=== PATIENT | male | born 1960 | race Caucasian/White ===

== ENCOUNTER 2017-10-31 21:45 | Inpatient (IN) ==
[2017-10-31 22:21] LABS: Baso # (Auto) 0.1 th/mm3 (0.0-0.2); Baso % (Auto) 0.5 % (0.0-2.0); Eos # (Auto) 0.4 th/mm3 (0.0-0.4); Eos % (Auto) 2.7 % (0.0-4.0); Hematocrit 37.9 % (39.0-51.0); Hemoglobin 12.6 gm/dL (13.0-17.0); Lymph % (Auto) 33.7 % (9.0-44.0); Mean Corpuscular HGB Conc 33.3 % (32.0-36.0); Mean Corpuscular Hemoglobin 33.4 pg (27.0-34.0); Mean Platelet Volume 7.4 fL (7.0-11.0); Mono # (Auto) 1.4 th/mm3 (0.0-0.9); Mono % (Auto) 9.2 % (0.0-8.0); Neut % (Auto) 53.9 % (16.0-70.0); Platelet Count 342 th/mm3 (150-450); Red Blood Count 3.79 mil/mm3 (4.50-5.90); White Blood Count 14.8 th/mm3 (4.0-11.0)
[2017-10-31 22:33] LABS: Activated Partial Thrombo Time 28.3 sec (24.3-30.1); INR 1.1 Ratio; Prothrombin Time 11.4 sec (9.8-11.6)
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
[2017-10-31 22:46] LABS: Calcium 7.2 mg/dL (8.5-10.1); Carbon Dioxide 20.6 meq/L (21.0-32.0)
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
[2017-10-31 23:01] LABS: Total Protein 6.6 g/dL (6.4-8.2)
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
[2017-10-31] MEDS ORDERED: Norepinephrine Inj 4 MG in Sodium Chlor 0.9% Inj 246 ML IV.SIG PRN (23:33)
[2017-10-31] MEDS ORDERED: Midazolam 50 MG/50 ML Inj 50 MG/50 ML BAG IV.CONT PRN (23:43)
[2017-10-31] MEDS: Sod Chloride 0.9% Inj 1,000 ML IV.SIG SCH (23:49)
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
[2017-11-01 00:22] LABS: ABG Base Excess -11.1 mmol/L (-2-2); ABG PCO2 33 mmHg (38-42); ABG PO2 477 mmHg (61-120)
[2017-11-01] MEDS ORDERED: Sod Chloride 0.9% Inj 1,000 ML IV.SIG SCH (00:49)
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
--- NOTE | 2017-11-01 01:05 | XR ---
EXAM DATE: 11/01/2017 12:06 AM EDT AGE/SEX: 89 years / Male INDICATIONS: Central line placement. CLINICAL DATA: This is the patient's subsequent encounter. Patient reports that signs and symptoms h ave been present for 3 days and indicates a pain score of Nonresponsive. MEDICAL/SURGICAL HISTORY: None. None. COMPARISON: [facility] [place], CHEST 1V SINGLE AP, 10/31/2017. . FINDINGS: Single AP view of the chest. Endotracheal tube remains in place. Nasogastric tube is now in place wit h the tip in the stomach. Left subclavian central venous catheter is in place with the tip at the cav oatrial junction. No evidence of pneumothorax. Lungs are clear. No pleural effusion. Cardiomediastina l silhouette within normal limits. CONCLUSION: Left subclavian central venous catheter and nasogastric tube now in place. Lungs are clear. Electronically signed by: Narciso Li MD 11/01/2017 1:04 AM EDT
[2017-11-01] MEDS: fentaNYL 10 mcg/mL Premix Drip 2,500 MCG/250 ML BAG IV.SIG PRN ×2 (02:23→19:43)
[2017-11-01 02:56] LABS: Bacteria,Urine Rare /hpf; Bilirubin,Urine Negative (Negative); Clarity,Urine Cloudy (Clear); Color,Urine Yellow (Yellw/Straw); Glucose,Urine (UA) 50 mg/dL (Negative); Leukocyte Esterase,Urine Negative (Negative); Nitrite,Urine Negative (Negative); Specific Gravity,Urine 1.034 (1.002-1.035); Squamous Epithelial Cell,Urine 1 /hpf (0-5)
[2017-11-01 03:00] LABS: Amphetamine Screen,Urine Neg (Neg); Barbiturate Screen,Urine Neg (Neg); Cannabinoid Screen,Urine Neg (Neg); Cocaine Screen,Urine Neg (Neg)
[2017-11-01 03:01] LABS: Opiate Screen,Urine Neg (Neg)
[2017-11-01] MEDS: Norepinephrine Inj 4 MG in Sodium Chlor 0.9% Inj 246 ML IV.SIG PRN ×3 (04:41→17:26)
[2017-11-01 05:23] LABS: ABG Base Excess -8.4 mmol/L (-2-2); ABG PCO2 31 mmHg (38-42); ABG PO2 199 mmHg (61-120)
[2017-11-01 05:34] LABS: Baso % (Auto) 0.2 % (0.0-2.0); Eos # (Auto) 0.1 th/mm3 (0.0-0.4); Eos % (Auto) 0.5 % (0.0-4.0); Hematocrit 34.3 % (39.0-51.0); Hemoglobin 12.4 gm/dL (13.0-17.0); Lymph # (Auto) 0.8 th/mm3 (1.0-4.8); Lymph % (Auto) 6.6 % (9.0-44.0); Mean Corpuscular Hemoglobin 33.8 pg (27.0-34.0); Mean Corpuscular Volume 93.9 fL (80.0-100.0); Mean Platelet Volume 7.2 fL (7.0-11.0); Mono # (Auto) 2.1 th/mm3 (0.0-0.9); Mono % (Auto) 16.5 % (0.0-8.0); Neut # (Auto) 9.7 th/mm3 (1.8-7.7); Neut % (Auto) 76.2 % (16.0-70.0); Platelet Count 227 th/mm3 (150-450); Red Blood Count 3.66 mil/mm3 (4.50-5.90); Red Cell Distribution Width 15.9 % (11.6-17.2); White Blood Count 12.7 th/mm3 (4.0-11.0)
[2017-11-01 06:00] LABS: Calcium 6.7 mg/dL (8.5-10.1); Carbon Dioxide 16.5 meq/L (21.0-32.0); Potassium 3.5 meq/L (3.5-5.1)
[2017-11-01] MEDS ORDERED: Magnesium Sulfate Inj 4 GM in Sodium Chlor 0.9% Inj 92 ML IV.SIG PRN ×2 (06:07→08:36)
[2017-11-01] MEDS ORDERED: Potassium Chlor 40 mEq Premix 40 MEQ/100 ML PIGGYBACK IV.SIG PRN ×4 (06:07→08:36)
[2017-11-01] MEDS ORDERED: Magnesium Sulfate Inj 2 GM in Sodium Chlor 0.9% Inj 96 ML IV.SIG PRN ×2 (06:07→08:36)
[2017-11-01] MEDS ORDERED: Magnesium Oxide 400 MG Tablet PO PRN ×2 (06:07→08:36)
[2017-11-01] MEDS ORDERED: Potassium Phosphate Inj 30 MMOL in Sodium Chlor 0.9% Inj 250 ML IV.SIG PRN ×2 (06:07→08:36)
[2017-11-01] MEDS ORDERED: Potassium Chlor 20 mEq Premix 20 MEQ/100 ML PIGGYBACK IV.SIG PRN ×4 (06:07→08:36)
[2017-11-01] MEDS ORDERED: Sodium Phosphate Inj 30 MMOL in Sodium Chlor 0.9% Inj 250 ML IV.SIG PRN ×2 (06:07→08:36)
[2017-11-01] MEDS ORDERED: Potassium Phosphate 500 MG Soluble Tablet PO PRN ×4 (06:07→08:36)
[2017-11-01 06:18] LABS: Total Protein 5.8 g/dL (6.4-8.2)
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
[2017-11-01] MEDS ORDERED: levETIRAcetam 500mg/100mL Inj 100 ML IV.SIG SCH (08:00)
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
[2017-11-01] MEDS: Famotidine Premix Inj 20 MG/50 ML PIGGYBACK IV.SIG SCH ×2 (08:17→09:39)
[2017-11-01 08:24] LABS: Lymphocytes 4 % (9-44); Monocytes 10 % (0-8); Myelocytes 3 % (0-0); Platelet Estimate Normal (Normal); Platelet Morphology Normal (Normal)
[2017-11-01] MEDS ORDERED: Potassium Chloride 25 MEQ Effervescent Tablet PO PRN (08:36)
[2017-11-01] MEDS ORDERED: Pantoprazole Inj 40 MG Vial IV.PUSH SCH (09:00)
[2017-11-01] MEDS: Chlorhexidine 0.12% Oral Kit 15 ML UDC OROPHARYNG SCH ×2 (09:36→22:27)
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
--- NOTE | 2017-11-01 11:06 | ECG ---
Date Performed: 11/01/2017 Time Performed: 10:44:18 PTAGE: 89 years EKG: Sinus tachycardia. Normal ECG except for rate NO PREVIOUS TRACING DOCTOR: Addi Horn Interpretating Date/Time 11/01/2017 11:05:26
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
--- NOTE | 2017-11-01 12:46 | CT ---
EXAM DATE: 11/01/2017 12:38 PM EDT AGE/SEX: 89 years / Male INDICATIONS: Follow up head injury. CLINICAL DATA: This is the patient's subsequent encounter. Patient reports that signs and symptoms h ave been present for 2 days and indicates a pain score of Nonresponsive. MEDICAL/SURGICAL HISTORY: . Skull fractures. None. RADIATION DOSE: 48.11 CTDI (mGy) COMPARISON: [facility] [place] HEAD W/O CONTRAST, 10/31/2017. . TECHNIQUE: CT of the head without contrast. Using automated exposure control and adjustment of the mA and/or kV according to patient size, radiation dose was kept as low as reasonably achievable to ob tain optimal diagnostic quality images. DICOM format image data is available electronically for revi ew and comparison. FINDINGS: Cerebrum: Evolving and increasing contusions within the right frontal and right temporal region. The re is adjacent vasogenic edema and mass effect. No significant midline shift. Ventricles remain paten t. Minimal subarachnoid hemorrhage left parietal region. There are subarachnoid hemorrhage on the rig ht as well. Small bilateral subdural hemorrhages measuring 11 mm on the left and 5 mm on the right Mi nimal pneumocephaly. The ventricles are normal for age. No evidence of midline shift, mass lesion, o r acute infarction. Posterior Fossa: The cerebellum and brainstem are intact. The 4th ventricle is midline. The cerebe llopontine angle is unremarkable. Extracranial: The visualized portion of the orbits is intact. Fluid throughout the paranasal sinuses . Skull: Left temporal parietal calvarial fracture.. Right temporal calvarial fracture CONCLUSION: 1. Evolving and increasing contusions left frontal temporal lobe. 2. Mild edema with mass effect but no midline shift. 3. Small bilateral subdural hemorrhages. Electronically signed by: Felton Prince MD 11/01/2017 12:44 PM EDT
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
[2017-11-01] MEDS ORDERED: Lidocaine 1%/Epinephrine 1:100,000 Inj 30 ML Vial ONE ×2 (18:32→18:33)
--- NOTE | 2017-11-01 19:17 | P.PNNS ---
Subjective Interval history: Nurses report no clinical change Physical Exam Vital signs: Vital Signs 10/31/17 21:31 10/31/17 22:15 10/31/17 22:40 Temperature Pulse Rate Respiratory Rate 27 H Blood Pressure Pulse Oximetry 100 100 100 10/31/17 23:00 10/31/17 23:39 11/01/17 00:00 Temperature 99.3 F 100 F H Pulse Rate 92 H 94 H Respiratory Rate 22 20 28 H Blood Pressure 98/58 L 121/60 Pulse Oximetry 100 100 11/01/17 00:53 11/01/17 04:00 11/01/17 04:46 Temperature 100.0 F H 100 F H Pulse Rate 111 H 113 H Respiratory Rate 26 H 22 22 Blood Pressure 124/66 130/83 Pulse Oximetry 100 100 11/01/17 07:53 11/01/17 08:00 11/01/17 09:00 Temperature 102.3 F H Pulse Rate 108 H 107 H 106 H Respiratory Rate 20 Blood Pressure 114/73 Pulse Oximetry 100 100 11/01/17 11:18 11/01/17 12:00 11/01/17 12:54 Temperature 100.8 F H Pulse Rate 112 H 101 H Respiratory Rate 18 16 Blood Pressure 96/55 L Pulse Oximetry 100 99 100 11/01/17 16:00 11/01/17 16:06 Temperature 98.1 F Pulse Rate 91 H 89 Respiratory Rate 16 15 Blood Pressure 100/55 L Pulse Oximetry 98 99 Intake & Output 11/01/17 11/01/17 11/02/17 06:59 18:59 06:59 Intake Total 2737 / 2737 905 / 905 Output Total 1000 / 1000 Balance 1737 / 1737 905 / 905 Weight 92.6 kg Intake: IV 1350 / 1350 905 / 905 Ofirmev Inj 1,000 mg In 100 ml 100 / 100 @ 400 mls/hr IV.SIG Q6H PRN Rx# :[id number] Pepcid 20 MG/50 ML Premix Inj 100 / 100 20 mg In 50 ml @ 100 mls/hr IV. SIG Q12HR JEMIMA Rx#:[id number] Levophed Inj 4 MG In NS Inj 246 250 / 250 500 / 500 ML @ 2 MCG/MIN 7.5 mls/hr IV. SIG TITRATE PRN Rx#:[id number] NS Inj 1,000 ML @ 999 mls/hr IV 1000 / 1000 .SIG .Q1H1M JEMIMA Rx#:[id number] Ancef Inj 1,000 MG In NS Inj 100 / 100 100 / 100 100 ML @ 200 mls/hr IV.SIG Q8H JEMIMA Rx#:[id number] Keppra Inj 500 MG In NS Inj 100 105 / 105 ML @ 400 mls/hr IV.SIG Q12HR JEMIMA Rx#:[id number] Other 500 / 500 Plasma Thawed 5 Day Cp2d Unit 500 / 500 [id number] Intake (Blood Product) Amt 887 / 887 Plasma Thawed 5 Day Acda Unit 223 / 223 [id number] Plasma Thawed 5 Day Cp2d Unit 264 / 264 [id number] Rbc As-3 Leukoreduced Unit 400 / 400 [id number] Output: Urine Amount (Catheter) 900 / 900 Indwelling Urethral Catheter 900 / 900 Gastric Drainage 100 / 100 Orogastric Tube 100 / 100 Narrative: Patient remains intubated and sedated Pupils are equal poorly reactive Minimal response in the lower extremities Tends to move the right upper extremity CT scan of the brain reviewed. Increase in hemorrhagic contusions and small subdural hematomas ICP monitor placed under local anesthesia. ICP 5-8 - Urinary Catheter Management Indwelling Urethral Catheter Cath placed during this visit: yes Reason for continuing: Hourly intake/output Insertion date: 11/01/17 Insertion time: 12:00 Assessment and Plan - Plan No change clinically. Despite worsening of CT, ICP remains under control We will continue close monitoring
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
[2017-11-01] MEDS: Senna/Docusate Sodium 8.6/50 MG Tablet PO SCH (22:27)
[2017-11-01] MEDS: Sod Chloride 0.9% Inj 1,000 ML IV.SIG SCH (22:37)
[2017-11-02] MEDS: Oral Hygiene Kit OROPHARYNG SCH ×3 (00:05→11:24)
[2017-11-02] MEDS: Norepinephrine Inj 4 MG in Sodium Chlor 0.9% Inj 246 ML IV.SIG PRN ×4 (00:30→21:01)
[2017-11-02 03:59] LABS: Baso % (Auto) 0.2 % (0.0-2.0); Eos % (Auto) 0.1 % (0.0-4.0); Hematocrit 33.6 % (39.0-51.0); Hemoglobin 11.4 gm/dL (13.0-17.0); Lymph # (Auto) 0.8 th/mm3 (1.0-4.8); Lymph % (Auto) 4.3 % (9.0-44.0); Mean Corpuscular HGB Conc 33.9 % (32.0-36.0); Mean Corpuscular Hemoglobin 32.6 pg (27.0-34.0); Mean Corpuscular Volume 96.1 fL (80.0-100.0); Mean Platelet Volume 7.7 fL (7.0-11.0); Mono # (Auto) 2.1 th/mm3 (0.0-0.9); Mono % (Auto) 11.5 % (0.0-8.0); Neut % (Auto) 83.9 % (16.0-70.0); Platelet Count 215 th/mm3 (150-450); Red Cell Distribution Width 16.4 % (11.6-17.2); White Blood Count 17.9 th/mm3 (4.0-11.0)
[2017-11-02 04:24] LABS: Potassium 4.3 meq/L (3.5-5.1)
[2017-11-02 04:40] LABS: Total Protein 5.9 g/dL (6.4-8.2)
--- NOTE | 2017-11-02 04:49 | XR ---
EXAM DATE: 11/02/2017 4:17 AM EDT AGE/SEX: 89 years / Male INDICATIONS: Difficulty breathing. CLINICAL DATA: This is the patient's subsequent encounter. Patient reports that signs and symptoms h ave been present for 2 days and indicates a pain score of Nonresponsive. MEDICAL/SURGICAL HISTORY: Non-responsive. Non-responsive. COMPARISON: [facility], CHEST 1V SINGLE AP, 10/31/2017. . FINDINGS: Stable ETT and NGT. Stable left subclavian central line. No significant new focal pleural or parenchy mal opacities. Cardiomediastinal contours are within normal limits. Bony thorax is intact. CONCLUSION: 1. Stable tubes and lines. 2. No significant interval change or acute abnormality. Electronically signed by: Bakari Muniz MD 11/02/2017 4:48 AM EDT
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
[2017-11-02] MEDS: Chlorhexidine 0.12% Oral Kit 15 ML UDC OROPHARYNG SCH ×2 (08:29→19:23)
[2017-11-02] MEDS: Senna/Docusate Sodium 8.6/50 MG Tablet PO SCH ×2 (08:29→20:04)
[2017-11-02] MEDS: fentaNYL 10 mcg/mL Premix Drip 2,500 MCG/250 ML BAG IV.SIG PRN ×2 (10:44→20:25)
[2017-11-02] MEDS: Piperacil/Tazo 4.5 GM Premix 4.5 GM/100 ML BAG IV.SIG SCH ×2 (10:44→18:42)
[2017-11-02] MEDS ORDERED: Vancomycin Inj 1,000 MG in Sodium Chlor 0.9% Inj 250 ML IV.SIG SCH (11:00)
[2017-11-02] MEDS ORDERED: Vancomycin Consult Pharmacy 1 EACH OTHER SCH (11:00)
[2017-11-02] MEDS: Propofol 1000 mg/100 ml Inj 1,000 MG/100 ML BOTTLE IV.CONT PRN ×3 (11:24→21:06)
[2017-11-02] MEDS ORDERED: RASS Change Order MISCELLANE ONE (12:00)
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
[2017-11-02] MEDS ORDERED: Vancomycin Inj 2,000 MG in Sodium Chlor 0.9% Inj 500 ML IV.SIG ONE (13:00)
[2017-11-02 13:27] LABS: ABG PCO2 43 mmHg (38-42); ABG PO2 143 mmHg (61-120)
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
[2017-11-02] MEDS ORDERED: Midazolam 50 MG/50 ML Inj 50 MG/50 ML BAG IV.CONT PRN (14:27)
[2017-11-02] MEDS ORDERED: Sodium Chloride 23.4% Inj 240 MEQ in Syringe/Bag 1 EACH IV.SIG ONE (15:00)
[2017-11-02] MEDS: Sod Chloride 0.9% Inj 1,000 ML IV.SIG SCH (20:03)
[2017-11-02] MEDS: Famotidine 20 MG Tablet PO SCH (20:04)
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
[2017-11-03] MEDS: Piperacil/Tazo 4.5 GM Premix 4.5 GM/100 ML BAG IV.SIG SCH ×3 (00:12→16:53)
[2017-11-03] MEDS: Propofol 1000 mg/100 ml Inj 1,000 MG/100 ML BOTTLE IV.CONT PRN ×3 (00:54→22:29)
[2017-11-03] MEDS: Oral Hygiene Kit OROPHARYNG SCH ×4 (00:59→23:53)
[2017-11-03] MEDS: Vancomycin Inj 1,500 MG in Sodium Chlor 0.9% Inj 500 ML IV.SIG SCH ×2 (03:25→16:53)
[2017-11-03 04:24] LABS: Baso # (Auto) 0.1 th/mm3 (0.0-0.2); Baso % (Auto) 0.4 % (0.0-2.0); Eos # (Auto) 0.3 th/mm3 (0.0-0.4); Eos % (Auto) 2.3 % (0.0-4.0); Hematocrit 27.3 % (39.0-51.0); Hemoglobin 9.3 gm/dL (13.0-17.0); Lymph # (Auto) 1.1 th/mm3 (1.0-4.8); Lymph % (Auto) 7.3 % (9.0-44.0); Mean Corpuscular HGB Conc 34.1 % (32.0-36.0); Mean Corpuscular Hemoglobin 33.1 pg (27.0-34.0); Mean Platelet Volume 8.4 fL (7.0-11.0); Mono # (Auto) 1.1 th/mm3 (0.0-0.9); Mono % (Auto) 7.8 % (0.0-8.0); Neut % (Auto) 82.2 % (16.0-70.0); Platelet Count 197 th/mm3 (150-450); Red Blood Count 2.81 mil/mm3 (4.50-5.90); White Blood Count 14.6 th/mm3 (4.0-11.0)
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
[2017-11-03 04:53] LABS: Anion Gap 9 meq/L (5-15); Blood Urea Nitrogen 11 mg/dL (7-18); Calcium 7.6 mg/dL (8.5-10.1); Carbon Dioxide 25.3 meq/L (21.0-32.0); Chloride 116 meq/L (98-107); Glomerular Filtration Rate Greater Than 89 mL/min (>89); Glucose,Random 176 mg/dL (74-106); Potassium 3.7 meq/L (3.5-5.1); Sodium 150 meq/L (136-145)
[2017-11-03] MEDS: Norepinephrine Inj 4 MG in Sodium Chlor 0.9% Inj 246 ML IV.SIG PRN (07:23)
[2017-11-03] MEDS: Senna/Docusate Sodium 8.6/50 MG Tablet PO SCH ×2 (08:00→20:11)
[2017-11-03] MEDS: Famotidine 20 MG Tablet PO SCH ×2 (08:00→20:11)
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
[2017-11-03] MEDS: fentaNYL 10 mcg/mL Premix Drip 2,500 MCG/250 ML BAG IV.SIG PRN (11:19)
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
[2017-11-03] MEDS: Chlorhexidine 0.12% Oral Kit 15 ML UDC OROPHARYNG SCH ×2 (20:12→21:28)
[2017-11-03] MEDS: Mupirocin 2% Nasal Oint Topical Syringe EACH NARE SCH (20:16)
[2017-11-04] MEDS: Vancomycin Inj 1,500 MG in Sodium Chlor 0.9% Inj 500 ML IV.SIG SCH ×2 (02:28→15:11)
--- NOTE | 2017-11-04 04:11 | XR ---
EXAM DATE: 11/04/2017 4:02 AM EDT AGE/SEX: 57 years / Male INDICATIONS: Shortness of breath. CLINICAL DATA: This is the patient's subsequent encounter. Patient reports that signs and symptoms h ave been present for 4 - 6 days and indicates a pain score of Nonresponsive. MEDICAL/SURGICAL HISTORY: Non-responsive. Non-responsive. COMPARISON: [facility] [place], CT CHEST W CONTRAST, 10/31/2017. . FINDINGS: Stable ETT, NGT and left subclavian central line. Persistent pleural-parenchymal disease in the left lower lung zone. Developing pleural-parenchymal disease in the right lower lung zone. Cardiomegaly sa w contours are stable. Redemonstration of right-sided rib fractures. CONCLUSION: 1. Stable tubes and lines. 2. Stable small left pleural effusion and associated airspace disease in the left lower lung zone. 3. Developing small right pleural effusion and associated lower lung zone airspace disease. Electronically signed by: Bakari Muniz MD 11/04/2017 4:09 AM EDT
[2017-11-04] MEDS: Propofol 1000 mg/100 ml Inj 1,000 MG/100 ML BOTTLE IV.CONT PRN ×3 (04:44→18:45)
[2017-11-04 05:06] LABS: Baso % (Auto) 0.3 % (0.0-2.0); Eos # (Auto) 0.4 th/mm3 (0.0-0.4); Eos % (Auto) 3.6 % (0.0-4.0); Hematocrit 25.3 % (39.0-51.0); Hemoglobin 8.7 gm/dL (13.0-17.0); Lymph # (Auto) 1.1 th/mm3 (1.0-4.8); Lymph % (Auto) 9.6 % (9.0-44.0); Mean Corpuscular HGB Conc 34.6 % (32.0-36.0); Mean Corpuscular Hemoglobin 33.4 pg (27.0-34.0); Mean Corpuscular Volume 96.7 fL (80.0-100.0); Mono # (Auto) 0.8 th/mm3 (0.0-0.9); Mono % (Auto) 7.1 % (0.0-8.0); Neut # (Auto) 9.2 th/mm3 (1.8-7.7); Neut % (Auto) 79.4 % (16.0-70.0); Platelet Count 207 th/mm3 (150-450); Red Blood Count 2.62 mil/mm3 (4.50-5.90); Red Cell Distribution Width 16.1 % (11.6-17.2); White Blood Count 11.6 th/mm3 (4.0-11.0)
[2017-11-04 05:30] LABS: Anion Gap 7 meq/L (5-15); Blood Urea Nitrogen 10 mg/dL (7-18); Calcium 7.6 mg/dL (8.5-10.1); Carbon Dioxide 26.7 meq/L (21.0-32.0); Chloride 118 meq/L (98-107); Glomerular Filtration Rate Greater Than 89 mL/min (>89); Glucose,Random 138 mg/dL (74-106); Potassium 3.4 meq/L (3.5-5.1); Sodium 152 meq/L (136-145)
[2017-11-04] MEDS: Potassium Chloride 25 MEQ Effervescent Tablet PO PRN (06:42)
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
[2017-11-04] MEDS: Mupirocin 2% Nasal Oint Topical Syringe EACH NARE SCH ×2 (09:14→20:18)
[2017-11-04] MEDS: Senna/Docusate Sodium 8.6/50 MG Tablet PO SCH ×2 (09:15→20:18)
[2017-11-04] MEDS: Famotidine 20 MG Tablet PO SCH ×2 (09:15→20:18)
[2017-11-04] MEDS: fentaNYL 10 mcg/mL Premix Drip 2,500 MCG/250 ML BAG IV.SIG PRN (09:58)
[2017-11-04] MEDS: Oral Hygiene Kit OROPHARYNG SCH ×3 (09:58→18:38)
[2017-11-04] MEDS ORDERED: Bisacodyl 10 MG Supp RECTAL ONE (10:27)
[2017-11-04] MEDS ORDERED: Sodium Chlor 0.9% Inj 250 ML IV.SIG SCH (11:00)
[2017-11-04] MEDS: Piperacil/Tazo 4.5 GM Premix 4.5 GM/100 ML BAG IV.SIG SCH ×3 (11:25→22:10)
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
--- NOTE | 2017-11-04 14:44 | P.PNPAL ---
[employer] results obtained: * Ruth Medrano, mother: voicemail left with palliative care stating she DOES NOT want to participate in medical decision making * Deisi Medrano, sister: [phone]-- wishes to participate in medical proxy decision making; attempting to have her mother () all patient's 7 siblings (patient had 8 siblings, 1 ) contact palliative care to voice their desire to participate or opt out of decision making. * Charly Medraon, brother: [phone]-- does NOT wish to participate in medical decision making. * Ran Medrano, brother: [phone] -- does NOT wish to participate in medical decision making * Jagruti Medrano, brother: blocked number -- does NOT wish to participate in medical proxy decision making * Suze Garduno, sister: [phone] -- does NOT wish to participate in medical decision making * Edith Medrano, sister: [phone]-- does NOT wish to participate in medical decision making * Charly Medrano, nephew: #[phone] * Ruth Medrano, niece: #[phone] Deisi Medrano, sister #[phone], will serve as health care proxy at this time. Requested contacts to be updated in EMR. Palliative care will continue to follow throughout hospitalization.
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
[2017-11-04] MEDS: Chlorhexidine 0.12% Oral Kit 15 ML UDC OROPHARYNG SCH (20:19)
[2017-11-05] MEDS: Oral Hygiene Kit OROPHARYNG SCH ×5 (01:12→16:23)
[2017-11-05] MEDS: fentaNYL 10 mcg/mL Premix Drip 2,500 MCG/250 ML BAG IV.SIG PRN ×2 (01:13→09:25)
[2017-11-05] MEDS: Propofol 1000 mg/100 ml Inj 1,000 MG/100 ML BOTTLE IV.CONT PRN ×3 (02:10→17:37)
[2017-11-05] MEDS ORDERED: Pharmacy Ordered Lab Info OTHER ONE (02:45)
[2017-11-05 03:11] LABS: Baso # (Auto) 0.1 th/mm3 (0.0-0.2); Baso % (Auto) 0.6 % (0.0-2.0); Eos # (Auto) 0.5 th/mm3 (0.0-0.4); Eos % (Auto) 4.6 % (0.0-4.0); Lymph # (Auto) 1.1 th/mm3 (1.0-4.8); Lymph % (Auto) 9.7 % (9.0-44.0); Mean Corpuscular HGB Conc 34.5 % (32.0-36.0); Mean Corpuscular Hemoglobin 32.5 pg (27.0-34.0); Mean Corpuscular Volume 94.1 fL (80.0-100.0); Mean Platelet Volume 7.9 fL (7.0-11.0); Mono # (Auto) 1.1 th/mm3 (0.0-0.9); Mono % (Auto) 10.4 % (0.0-8.0); Neut # (Auto) 8.2 th/mm3 (1.8-7.7); Neut % (Auto) 74.7 % (16.0-70.0); Platelet Count 251 th/mm3 (150-450); Red Cell Distribution Width 15.8 % (11.6-17.2)
[2017-11-05 03:27] LABS: Anion Gap 8 meq/L (5-15); Blood Urea Nitrogen 10 mg/dL (7-18); Calcium 7.5 mg/dL (8.5-10.1); Carbon Dioxide 25.2 meq/L (21.0-32.0); Chloride 118 meq/L (98-107); Glomerular Filtration Rate Greater Than 89 mL/min (>89); Glucose,Random 132 mg/dL (74-106); Potassium 3.4 meq/L (3.5-5.1); Sodium 151 meq/L (136-145)
[2017-11-05] MEDS: Piperacil/Tazo 4.5 GM Premix 4.5 GM/100 ML BAG IV.SIG SCH ×4 (04:08→23:00)
[2017-11-05 05:30] LABS: ABG Base Excess 1.8 mmol/L (-2-2); ABG PCO2 39 mmHg (38-42); ABG PO2 110 mmHg (61-120)
[2017-11-05] MEDS: Potassium Chloride 25 MEQ Effervescent Tablet PO PRN (05:41)
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
[2017-11-05] MEDS: Sod Chloride 0.9% Inj 1,000 ML IV.SIG SCH ×4 (08:16→18:09)
[2017-11-05] MEDS: Chlorhexidine 0.12% Oral Kit 15 ML UDC OROPHARYNG SCH ×4 (08:17→20:18)
[2017-11-05] MEDS: Mupirocin 2% Nasal Oint Topical Syringe EACH NARE SCH ×2 (08:17→20:18)
[2017-11-05] MEDS: Famotidine 20 MG Tablet PO SCH ×2 (09:02→20:19)
[2017-11-05] MEDS: Senna/Docusate Sodium 8.6/50 MG Tablet PO SCH ×2 (09:02→20:19)
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
[2017-11-06] MEDS: Oral Hygiene Kit OROPHARYNG SCH ×4 (00:12→15:49)
[2017-11-06] MEDS: Propofol 1000 mg/100 ml Inj 1,000 MG/100 ML BOTTLE IV.CONT PRN ×2 (00:13→08:17)
[2017-11-06] MEDS: Piperacil/Tazo 4.5 GM Premix 4.5 GM/100 ML BAG IV.SIG SCH ×2 (04:42→10:50)
[2017-11-06] MEDS: fentaNYL 10 mcg/mL Premix Drip 2,500 MCG/250 ML BAG IV.SIG PRN ×3 (04:43→23:17)
[2017-11-06 05:40] LABS: Baso # (Auto) 0.1 th/mm3 (0.0-0.2); Baso % (Auto) 0.5 % (0.0-2.0); Eos # (Auto) 0.9 th/mm3 (0.0-0.4); Eos % (Auto) 7.4 % (0.0-4.0); Hematocrit 32.2 % (39.0-51.0); Hemoglobin 10.8 gm/dL (13.0-17.0); Lymph # (Auto) 0.9 th/mm3 (1.0-4.8); Lymph % (Auto) 7.6 % (9.0-44.0); Mean Corpuscular HGB Conc 33.7 % (32.0-36.0); Mean Corpuscular Hemoglobin 32.1 pg (27.0-34.0); Mean Corpuscular Volume 95.4 fL (80.0-100.0); Mono # (Auto) 1.5 th/mm3 (0.0-0.9); Mono % (Auto) 12.6 % (0.0-8.0); Neut # (Auto) 8.6 th/mm3 (1.8-7.7); Neut % (Auto) 71.9 % (16.0-70.0); Platelet Count 272 th/mm3 (150-450); Red Blood Count 3.38 mil/mm3 (4.50-5.90); Red Cell Distribution Width 16.2 % (11.6-17.2)
[2017-11-06 05:54] LABS: Anion Gap 8 meq/L (5-15); Blood Urea Nitrogen 11 mg/dL (7-18); Calcium 7.8 mg/dL (8.5-10.1); Carbon Dioxide 25.9 meq/L (21.0-32.0); Chloride 117 meq/L (98-107); Glomerular Filtration Rate Greater Than 89 mL/min (>89); Glucose,Random 119 mg/dL (74-106); Potassium 3.5 meq/L (3.5-5.1); Sodium 151 meq/L (136-145)
[2017-11-06 06:03] LABS: ABG Base Excess 0.7 mmol/L (-2-2); ABG PCO2 39 mmHg (38-42); ABG PO2 121 mmHg (61-120)
[2017-11-06] MEDS: Potassium Chloride 25 MEQ Effervescent Tablet PO PRN (06:26)
[2017-11-06] MEDS: Chlorhexidine 0.12% Oral Kit 15 ML UDC OROPHARYNG SCH (07:33)
[2017-11-06] MEDS: Mupirocin 2% Nasal Oint Topical Syringe EACH NARE SCH (08:02)
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
[2017-11-06] MEDS: Famotidine 20 MG Tablet PO SCH (08:07)
[2017-11-06] MEDS: Senna/Docusate Sodium 8.6/50 MG Tablet PO SCH (08:08)
[2017-11-06 08:28] LABS: Eosinophils 10 % (0-4); Lymphocytes 7 % (9-44); Monocytes 9 % (0-8); Platelet Estimate Normal (Normal); Platelet Morphology Normal (Normal); RBC Morphology Normal (Normal)
[2017-11-06] MEDS: Sod Chloride 0.9% Inj 1,000 ML IV.SIG SCH (09:15)
[2017-11-06] MEDS ORDERED: Morphine Inj 4 MG/ML Vial IV.PUSH ONE ×2 (11:01→14:07)
[2017-11-06] MEDS ORDERED: Acetaminophen 650 MG Supp RECTAL PRN ×2 (11:01→14:07)
[2017-11-06] MEDS ORDERED: Morphine Sulfate Inj 8 MG/ML Vial IV.PUSH ONE ×2 (11:01→14:07)
[2017-11-06] MEDS ORDERED: Morphine Inj 4 MG/ML Vial IV.PUSH PRN ×2 (11:01→14:07)
[2017-11-06] MEDS ORDERED: Hyoscyamine Inj 0.5 MG/ML Ampul IV.PUSH ONE (11:01)
[2017-11-06] MEDS ORDERED: Hyoscyamine Inj 0.5 MG/ML Ampul IV.PUSH PRN (11:01)
[2017-11-06] MEDS ORDERED: Bisacodyl 10 MG Supp RECTAL PRN ×2 (11:01→14:07)
[2017-11-06] MEDS ORDERED: Morphine Inj 4 MG/ML Vial IV.PUSH SCH (12:00)
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
--- NOTE | 2017-11-06 13:38 | P.PNPAL ---
<Geo Najera - Last Filed: 11/06/17 13:34> Code status changed back to DNR after [employer] Department advised that patient`s sister Deisi Medrano is the lawful health care proxy. Patient`s sister has elected DNR. <Diomedes Vann - Last Filed: 11/06/17 16:39> Please see palliative social science manager note for details. [employer] Department advise us that sister's Deisi Medrano is the health care proxy. I have met with pt's sister and they have elected DNR and transition to comfort measures/ compassionate withdrawl of care. Exhibits B and C completed. Attending physician also have been notified.
--- NOTE | 2017-11-06 14:07 | P.PNPAL ---
Palliative care met with Deisi, patient's sister and health care proxy. Also present patient's sister, Suze. Deisi has elected to proceed with compassionate withdrawal of life support and transition to comfort measures only with hospice support. During our visit the patient's friend, Tomás Cisneros (introduces herself as a step-daughter) showed up with her two children. Confirms she is NOT blood related to the patient. Confirms her mother, Julianne, was never legally to the patient. Telephone call received by [facility] RN from Julianne indicating the patient has a daughter, mAinata Mckeon. [employer] report ran to obtain contact information for her. Aminata ([phone]) indicates she has no father listed on her certificate but she has always referred to Mr. Medrano as her father. Patient's siblings (Deisi Medrano, Charly Medrano, Ran Medrano, Jagruti Medrano, Suze Garduno, Edith Medrano) and mother (Ruth Medrano) all indicate patient does not have any children. Spoke with legal department who advised without legal documentation and given all family stating he does not have any children, patient's sister Deisi will remain health care proxy. Spoke with Aminata to inform her of above. Spoke with patient's sister, Deisi to inform her of above. Deisi is the health care proxy decision maker and confirms desire to withdrawal life support and transition to comfort measures only with hospice support. Palliative care will continue to follow throughout hospitalization.
[2017-11-06] MEDS ORDERED: Propofol 1000 mg/100 ml Inj 1,000 MG/100 ML BOTTLE IV.CONT PRN (14:50)
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
[2017-11-06] MEDS: Morphine Sulfate Inj 8 MG/ML Vial IV.PUSH PRN (18:50)
[2017-11-06] MEDS: Hyoscyamine Inj 0.5 MG/ML Ampul IV.PUSH PRN ×2 (18:51→22:18)
[2017-11-07] MEDS: Morphine Sulfate Inj 8 MG/ML Vial IV.PUSH PRN (01:19)
[2017-11-07] MEDS: fentaNYL 10 mcg/mL Premix Drip 2,500 MCG/250 ML BAG IV.SIG PRN (07:02)
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
== END 2017-11-07 08:30 | disposition expired ==
LOC: NEPI 21:45 → EDBD 22:55 → NEDA 22:55 → N03 22:58
PROVIDERS: ADMIT Surgery; ATTEND Surgery